=== PATIENT | male | born 1955 | race Caucasian/White ===

== ENCOUNTER → 2018-06-18 | Outpatient (REF) | payer OTHER ==
[2018-06-18 17:03] LABS: BASO # 0.1 10^3/uL (0.0-0.2); BASO % 1.1 % (0.0-1.0); EOS # 0.1 10^3/uL (0.0-0.50); EOS % 1.1 % (0.0-3.0); HEMATOCRIT 41.8 % (42.0-52.0); HEMOGLOBIN 13.7 g/dl (13.5-17.5); LYMPH # 1.8 10^3/uL (1.5-4.5); LYMPH % 24.2 % (24.0-44.0); MEAN CORPUSCULAR HGB CONC 32.8 g/dl (32.0-36.5); MEAN CORPUSCULAR VOLUME 88.6 fl (80.0-96.0); MONO # 0.8 10^3/uL (0.0-0.8); MONO % 10.8 % (0.0-5.0); NEUTROPHILS # 4.5 10^3/uL (1.8-7.7); NEUTROPHILS % 62.4 % (36.0-66.0); PLATELET COUNT, AUTOMATED 181 10^3/uL (150-450); RED BLOOD COUNT 4.72 10^6/uL (4.30-6.10); WHITE BLOOD COUNT 7.2 10^3/uL (4.0-10.0)
[2018-06-18 17:07] LABS: ALBUMIN 2.9 GM/DL (3.2-5.2); BILIRUBIN,TOTAL 0.3 MG/DL (0.2-1.0); CALCIUM LEVEL 8.7 MG/DL (8.8-10.2); CHOLESTEROL RISK RATIO 6.139 (<5); CREATININE FOR GFR 1.58 MG/DL (0.70-1.30); GLOMERULAR FILTRATION RATE 47.4 (>49); POTASSIUM SERUM 4.3 MEQ/L (3.5-5.1); THYROID STIMULATING HORMONE 3.54 uIU/ML (0.358-3.740); TOTAL PROTEIN 6.4 GM/DL (6.4-8.2)
[2018-06-18 17:18] LABS: HEMOGLOBIN A1c 12.7 %
[2018-06-18 17:31] LABS: CREATININE, URINE 58.1 MG/DL; MAU/CREAT RATIO 984.5 MCG/MG (0.0-30.0)
== END ==
LOC: M SFHCCAPE 07:24
PROVIDERS: ATTEND Physician Assistant
DX: E11.69 Type 2 diabetes mellitus with other specified complication (principal); I10 Essential (primary) hypertension

== ENCOUNTER → 2018-07-19 | Outpatient (CLI) | payer OTHER ==
--- NOTE | 2018-07-19 14:25 | REP ---
COLOR FLOW DOPPLER EXAMINATION OF THE ARTERIES OF THE NECK: RIGHT CAROTID: There is extensive plaquing of right internal carotid artery and somewhat in the bulb. The peak systolic velocities are as follows: Right common carotid 87.9 cm/s External carotid artery 77.6 cm/s Internal carotid artery 166 cm/s Diastolic internal carotid artery velocity 55.5 cm/s Internal carotid artery/common carotid artery ratio 1.89 LEFT CAROTID ARTERY: There is extensive plaquing of left internal carotid artery with complete occlusion by calcified plaque. There is some plaquing of the common carotid artery. The peak systolic velocities of the left carotid artery system is as follows: Common carotid artery 61.9 cm/s External carotid artery 104.6 cm/s Internal carotid artery completely occluded The flow in the vertebral arteries is antegrade or normal. IMPRESSION: Complete occlusion of the left internal carotid artery, as described. Extensive plaquing of right and left arteries. The degree of stenosis of the right internal carotid artery is less than 69%. This falls between 50 and 69%. Electronically Signed by Enoch Nguyen MD 07/19/2018 03:35 P
== END ==
LOC: M RAD 13:09 → EDSEX 13:30
PROVIDERS: ATTEND Physician Assistant
DX: I65.23 Occlusion and stenosis of bilateral carotid arteries (principal)

== ENCOUNTER → 2018-08-22 | Outpatient (REF) | payer OTHER ==
[2018-08-22 18:04] LABS: FREE T4 1.94 NG/DL (0.76-1.46); THYROID STIMULATING HORMONE 0.04 uIU/ML (0.358-3.740)
== END ==
LOC: M LABDRAW1 17:01
PROVIDERS: ATTEND Internal Medicine Endocrinology, Diabetes & Metabolism
DX: E04.2 Nontoxic multinodular goiter (principal)

== ENCOUNTER → 2018-11-06 | Outpatient (REF) | payer OTHER ==
[2018-11-06 16:04] LABS: BASO # 0.1 10^3/uL (0.0-0.2); BASO % 0.7 % (0.0-1.0); EOS # 0.1 10^3/uL (0.0-0.50); EOS % 1.1 % (0.0-3.0); HEMOGLOBIN 12.6 g/dl (12.0-15.5); LYMPH % 26.3 % (24.0-44.0); MEAN CORPUSCULAR HEMOGLOBIN 29.2 pg (27.0-33.0); MEAN CORPUSCULAR HGB CONC 32.3 g/dl (32.0-36.5); MEAN CORPUSCULAR VOLUME 90.3 fl (80.0-96.0); MONO # 0.7 10^3/uL (0.0-0.8); MONO % 9.5 % (0.0-5.0); NEUTROPHILS # 4.6 10^3/uL (1.8-7.7); NEUTROPHILS % 62.3 % (36.0-66.0); PLATELET COUNT, AUTOMATED 230 10^3/uL (150-450); RED BLOOD COUNT 4.32 10^6/uL (4.00-5.40); WHITE BLOOD COUNT 7.5 10^3/uL (4.0-10.0)
[2018-11-06 16:19] LABS: FREE T4 1.14 NG/DL (0.76-1.46); THYROID STIMULATING HORMONE 0.486 uIU/ML (0.358-3.740)
== END ==
LOC: M LABDRAW1 13:54
PROVIDERS: ATTEND Nurse Practitioner Family
DX: E05.00 Thyrotoxicosis with diffuse goiter without thyrotoxic crisis or storm (principal)

== ENCOUNTER → 2019-01-06 | Outpatient (REF) | payer OTHER ==
[2019-01-06 13:50] LABS: FREE T4 0.84 NG/DL (0.76-1.46); THYROID STIMULATING HORMONE 17.2 uIU/ML (0.358-3.740)
== END ==
LOC: M LABDRAW1 10:15
PROVIDERS: ATTEND Nurse Practitioner Family
DX: E05.00 Thyrotoxicosis with diffuse goiter without thyrotoxic crisis or storm (principal)

== ENCOUNTER → 2019-02-24 | Outpatient (CLI) | payer OTHER ==
[2019-02-24 13:26] LABS: BASO # 0.1 10^3/uL (0.0-0.2); BASO % 0.7 % (0.0-1.0); EOS # 0.1 10^3/uL (0.0-0.5); EOS % 0.7 % (0.0-3.0); HEMATOCRIT 40.9 % (36.0-47.0); HEMOGLOBIN 13.2 g/dl (12.0-15.5); LYMPH # 1.9 10^3/uL (1.5-5.0); LYMPH % 25.1 % (24.0-44.0); MEAN CORPUSCULAR HEMOGLOBIN 29.8 pg (27.0-33.0); MEAN CORPUSCULAR HGB CONC 32.3 g/dl (32.0-36.5); MEAN CORPUSCULAR VOLUME 92.3 fl (80.0-96.0); MONO # 0.7 10^3/uL (0.0-0.8); MONO % 8.9 % (0.0-5.0); NEUTROPHILS # 4.9 10^3/uL (1.5-8.5); NEUTROPHILS % 64.3 % (36.0-66.0); PLATELET COUNT, AUTOMATED 220 10^3/uL (150-450); RED BLOOD COUNT 4.43 10^6/uL (4.00-5.40); WHITE BLOOD COUNT 7.6 10^3/uL (4.0-10.0)
[2019-02-24 13:57] LABS: CALCIUM LEVEL 9.1 MG/DL (8.8-10.2); CREATININE FOR GFR 1.74 MG/DL (0.55-1.30); FREE THYROXINE INDEX 3.6 % (1.3-4.8); GLOMERULAR FILTRATION RATE 31.4 (>45); POTASSIUM SERUM 4.4 MEQ/L (3.5-5.1); THYROID STIMULATING HORMONE 5.28 uIU/ML (0.358-3.740); THYROXINE (T4) 8.6 UG/DL (4.5-12.0)
== END ==
LOC: M LAB 12:10
PROVIDERS: ATTEND Internal Medicine Cardiovascular Disease
DX: I48.1 Persistent atrial fibrillation (principal)

== ENCOUNTER → 2019-03-10 | Outpatient (REF) | payer OTHER ==
[2019-03-10 16:28] LABS: FREE T4 0.93 NG/DL (0.76-1.46); THYROID STIMULATING HORMONE 5.55 uIU/ML (0.358-3.740)
== END ==
LOC: M LABDRAW1 15:36
PROVIDERS: ATTEND Nurse Practitioner Family
DX: E05.00 Thyrotoxicosis with diffuse goiter without thyrotoxic crisis or storm (principal)

== ENCOUNTER 2019-04-29 11:34 | Emergency (ER) | payer OTHER ==
[~2019-04-29] VITALS: Ht 160 cm; Wt 100.0 kg
[2019-04-29] MEDS ORDERED: QUIN1TAB4 PO (11:55)
[2019-04-29] MEDS ORDERED: VITA1CAP25 PO (11:55)
[2019-04-29] MEDS ORDERED: ASPI81TA85 PO (11:55)
[2019-04-29] MEDS ORDERED: HYDR12.55 PO (11:55)
[2019-04-29] MEDS ORDERED: ELIQ5TAB PO (11:55)
[2019-04-29] MEDS ORDERED: TRES100I SC (11:55)
[2019-04-29] MEDS ORDERED: ATOR40TA75 PO (11:55)
[2019-04-29] MEDS ORDERED: LOPR1TAB6 PO (11:55)
[2019-04-29] MEDS ORDERED: VICT18IN SC (11:55)
[2019-04-29 13:00] LABS: BASO # 0.1 10^3/uL (0.0-0.2); BASO % 0.7 % (0.0-1.0); EOS # 0.1 10^3/uL (0.0-0.5); EOS % 0.7 % (0.0-3.0); HEMATOCRIT 40.2 % (36.0-47.0); HEMOGLOBIN 13.1 g/dl (12.0-15.5); LYMPH % 24.4 % (24.0-44.0); MEAN CORPUSCULAR HGB CONC 32.6 g/dl (32.0-36.5); MEAN CORPUSCULAR VOLUME 88.9 fl (80.0-96.0); MONO # 0.8 10^3/uL (0.0-0.8); MONO % 9.9 % (0.0-5.0); NEUTROPHILS # 5.2 10^3/uL (1.5-8.5); NEUTROPHILS % 64.1 % (36.0-66.0); PLATELET COUNT, AUTOMATED 220 10^3/uL (150-450); RED BLOOD COUNT 4.52 10^6/uL (4.00-5.40); WHITE BLOOD COUNT 8.2 10^3/uL (4.0-10.0)
[2019-04-29] MEDS ORDERED: NS 500 ML IV ONE ×2 (13:15→16:00)
[2019-04-29 13:26] LABS: ALBUMIN 3.1 GM/DL (3.2-5.2); ALT/SGPT 20 U/L (12-78); BILIRUBIN,TOTAL 0.5 MG/DL (0.2-1.0); BLOOD UREA NITROGEN 26 MG/DL (7-18); CALCIUM LEVEL 8.9 MG/DL (8.8-10.2); CARBON DIOXIDE LEVEL 28 MEQ/L (21-32); CHLORIDE LEVEL 106 MEQ/L (98-107); GLOMERULAR FILTRATION RATE 37.2 (>45); GLUCOSE, FASTING 115 MG/DL (70-100); POTASSIUM SERUM 4.1 MEQ/L (3.5-5.1); SODIUM LEVEL 140 MEQ/L (136-145); TOTAL PROTEIN 6.5 GM/DL (6.4-8.2)
--- NOTE | 2019-04-29 13:43 | REP ---
CT brain: 04/29/2019. Indication: Dizziness. Weakness. Comparison: None. Technique: Unenhanced axial CT images of the brain were obtained from skull base to vertex. Findings: There is no acute intracranial hemorrhage, acute cortical infarction, mass effect, hydrocephalus or significant fluid within the visualized paranasal sinuses/mastoid air cells. Impression: No acute intracranial process. Electronically Signed by Ron Marroquin DO 04/29/2019 01:34 P
--- NOTE | 2019-04-29 13:49 | REP ---
Clinical: Weakness and dizziness . Comparison: None . Technique: PA and lateral. Findings: Cardiomegaly is suggested. The lung henderson are clear and without acute consolidation, effusion, or pneumothorax. The skeletal structures are intact and normal. Impression: 1. Cardiomegaly. No acute cardiopulmonary process. Electronically Signed by Brandyn Sandoval MD 04/29/2019 01:40 P
[2019-04-29 13:56] LABS: CK-MB VALUE MASS < 1.0 NG/ML (<3.6); CPK CREATINE PHOSPHOKINASE 33 U/L (26-192); FREE T4 1.05 NG/DL (0.76-1.46); MAGNESIUM LEVEL 2.2 MG/DL (1.8-2.4); MB/CK RELATIVE INDEX 3.03 (< OR =4); PHOSPHORUS LEVEL 3.7 MG/DL (2.5-4.9); TROPONIN I < 0.02 NG/ML (< 0.10)
[2019-04-29] MEDS ORDERED: METOPROLOL 5 MG/5 ML VIAL IV STA ×2 (15:58→17:21)
[2019-04-29] MEDS ORDERED: METOPROLOL TART 50 MG TAB PO ONE (16:00)
--- NOTE | 2019-04-29 17:15 | ECGEPIP ---
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
[2019-04-29 18:51] VITALS: BP 128/69
== END 2019-04-29 18:52 | disposition home or self-care (01) ==
LOC: M ED 11:34
DX: I48.91 Unspecified atrial fibrillation (principal); I95.1 Orthostatic hypotension; E11.9 Type 2 diabetes mellitus without complications; I12.9 Hypertensive chronic kidney disease with stage 1 through stage 4 chronic kidney disease, or unspecified chronic kidney disease; N18.9 Chronic kidney disease, unspecified; Z79.899 Other long term (current) drug therapy; Z79.82 Long term (current) use of aspirin; Z79.4 Long term (current) use of insulin; Z79.01 Long term (current) use of anticoagulants; Z88.8 Allergy status to other drugs, medicaments and biological substances; Z91.018 Allergy to other foods

== ENCOUNTER 2019-05-06 05:40 | Day surgery (SDC) | payer OTHER ==
[~2019-05-06] VITALS: Ht 160 cm; Wt 99.8 kg
[~2019-05-06 05:40] MED LIST: ASPI81TA85 PO; ATOR40TA75 PO; ELIQ5TAB PO; HYDR12.55 PO; LOPR1TAB6 PO; QUIN1TAB4 PO; TRES100I SC; VICT18IN SC; VITA1CAP25 PO
[2019-05-06] MEDS ORDERED: LR 1,000 ML IV ONE (06:00)
[2019-05-06] MEDS ORDERED: LIDOCAINE 2% INJ 100 MG/5 ML SDV (FOR ANES.) As Ordered ONE (07:14)
[2019-05-06] MEDS ORDERED: PROPOFOL 200 MG/20 ML VIAL As Ordered ONE (07:14)
--- NOTE | 2019-05-06 07:52 | RO ---
DATE OF PROCEDURE: 05/06/2019 INDICATION: Atrial flutter. Anesthesiology provided by Nupur Pizarro CRNA. BRIEF HISTORY: Mrs. Harrison is a 63-year-old female who has had persistent atypical atrial flutter now for approximately 2 months it has been challenging to accomplish rate control and she already had two ablations in the past. Ultimately we decided to proceed with DC cardioversion in an attempt to restore sinus rhythm. I talked to the patient about the risks of the procedure including the risk of stroke and possibility need of pacemaker early relapse. She did sign appropriate consent on outpatient basis. PROCEDURE NOTE: Procedure was performed recovery room the patient presented in fasting condition. She was examined and 12-lead ECG confirmed persistent atrial flutter with ventricular rate 125 beats per minute. After appropriate time-out was taken anesthesiology provided sedation. When appropriate level sedation was accomplished, she was cardioverted with 200 joules of energy in synchronized fashion. Single shock led to mandaeism of sinus rhythm. There were no immediate complications. 12-lead ECG is pending at the time of my dictation. The patient will be discharged home later today provided no complications occur. She will resume her preadmission medications. I will arrange for outpatient followup next week.
[2019-05-06] MEDS ORDERED: fentaNYL 100 MCG/2 ML INJECTION (J3010) IV PRN (08:00)
[2019-05-06] MEDS ORDERED: LR 1,000 ML IV SCH (08:00)
[2019-05-06] MEDS ORDERED: ONDANSETRON 4MG/2ML VIAL (J2405) IV PRN (08:00)
[2019-05-06] MEDS ORDERED: METOCLOPRAMIDE INJ 10MG/2ML VIAL (J2765) IV PRN (08:00)
[2019-05-06 08:04] VITALS: BP 128/61
--- NOTE | 2019-05-06 16:48 | ECGEPIP ---
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
--- NOTE | 2019-05-06 16:48 | ECGEPIP ---
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
== END 2019-05-06 08:47 | disposition home or self-care (01) ==
LOC: M SDC 05:40
PROVIDERS: ATTEND Internal Medicine Cardiovascular Disease
DX: I48.92 Unspecified atrial flutter (principal); I10 Essential (primary) hypertension; E11.9 Type 2 diabetes mellitus without complications; Z79.82 Long term (current) use of aspirin; Z79.899 Other long term (current) drug therapy

== ENCOUNTER → 2019-05-22 | Outpatient (CLI) | payer OTHER ==
[2019-05-22 19:57] LABS: THYROID STIMULATING HORMONE 4.66 uIU/ML (0.358-3.740)
== END ==
LOC: M WUC 11:47
PROVIDERS: ATTEND Nurse Practitioner Family
DX: E05.00 Thyrotoxicosis with diffuse goiter without thyrotoxic crisis or storm (principal)

== ENCOUNTER → 2019-06-04 | Outpatient (CLI) | payer MEDICARE, OTHER ==
[2019-06-04 16:50] LABS: HEMOGLOBIN 13.8 g/dl (12.0-15.5); MEAN CORPUSCULAR HEMOGLOBIN 28.9 pg (27.0-33.0); MEAN CORPUSCULAR HGB CONC 32.1 g/dl (32.0-36.5); PLATELET COUNT, AUTOMATED 245 10^3/uL (150-450); RED BLOOD COUNT 4.78 10^6/uL (4.00-5.40); WHITE BLOOD COUNT 7.9 10^3/uL (4.0-10.0)
[2019-06-04 17:07] LABS: CALCIUM LEVEL 9.2 MG/DL (8.8-10.2); CREATININE FOR GFR 1.45 MG/DL (0.55-1.30); GLOMERULAR FILTRATION RATE 38.7 (>45); POTASSIUM SERUM 4.4 MEQ/L (3.5-5.1); THYROID STIMULATING HORMONE 4.96 uIU/ML (0.358-3.740)
== END ==
LOC: M WUC 14:00
PROVIDERS: ATTEND Nurse Practitioner Family
DX: I48.0 Paroxysmal atrial fibrillation (principal)

== ENCOUNTER → 2019-06-24 | Outpatient (REF) | payer MEDICARE, OTHER ==
[2019-06-24 17:59] LABS: ALBUMIN 3.3 GM/DL (3.2-5.2); BILIRUBIN,TOTAL 0.3 MG/DL (0.2-1.0); CALCIUM LEVEL 9.3 MG/DL (8.8-10.2); CHOLESTEROL RISK RATIO 3.822 (<5); CREATININE FOR GFR 1.4 MG/DL (0.55-1.30); GLOMERULAR FILTRATION RATE 40.2 (>45); HEMOGLOBIN A1c 6.8 %; POTASSIUM SERUM 4.3 MEQ/L (3.5-5.1); TOTAL PROTEIN 6.6 GM/DL (6.4-8.2)
[2019-06-24 18:14] LABS: BASO # 0.1 10^3/uL (0.0-0.2); BASO % 0.8 % (0.0-1.0); EOS # 0.1 10^3/uL (0.0-0.5); EOS % 1.2 % (0.0-3.0); HEMATOCRIT 42.8 % (36.0-47.0); HEMOGLOBIN 13.8 g/dl (12.0-15.5); LYMPH # 1.8 10^3/uL (1.5-5.0); LYMPH % 23.6 % (24.0-44.0); MEAN CORPUSCULAR HEMOGLOBIN 29.1 pg (27.0-33.0); MEAN CORPUSCULAR HGB CONC 32.2 g/dl (32.0-36.5); MEAN CORPUSCULAR VOLUME 90.3 fl (80.0-96.0); MONO # 0.7 10^3/uL (0.0-0.8); MONO % 9.5 % (0.0-5.0); NEUTROPHILS # 4.9 10^3/uL (1.5-8.5); NEUTROPHILS % 64.5 % (36.0-66.0); PLATELET COUNT, AUTOMATED 235 10^3/uL (150-450); RED BLOOD COUNT 4.74 10^6/uL (4.00-5.40); WHITE BLOOD COUNT 7.6 10^3/uL (4.0-10.0)
[2019-06-24 18:19] LABS: CREATININE, URINE 68.6 MG/DL; MAU/CREAT RATIO 45.1 MCG/MG (0.0-30.0)
== END ==
LOC: M SFHCCAPE 10:26
PROVIDERS: ATTEND Physician Assistant
DX: E11.69 Type 2 diabetes mellitus with other specified complication (principal)

== ENCOUNTER → 2019-07-08 | Outpatient (CLI) | payer MEDICARE, OTHER ==
--- NOTE | 2019-07-11 14:40 | REPMRS ---
Patient History The patient states she had a clinical breast exam in May 2019. No known family history of cancer. Digital Mammo Diagnostic Bilateral: July 08, 2019 - Exam #: [id number] Bilateral CC and MLO view(s) were taken. Technologist: Nancy Martinez, Technologist Prior study comparison: December 28, 2016, right breast diagnostic unilateral mammo, performed at [facility]. December 18, 2016, bilateral digital woman screen mammo, performed at [facility]. FINDINGS: There are scattered fibroglandular densities. There are a grouping of rounded punctate calcifications in the upper outer quadrant anterior third right breast unchanged from the 2017 prior study. There is a coarse calcification centrally in the well-circumscribed 8 mm nodule in the left subareolar breast consistent with a small fibroadenoma. This is felt to be unchanged. There has been no change in the appearance of the mammogram from the prior studies. There is a mild amount of scattered fibroglandular density which is fairly symmetric. There is no interval development of dominant mass, architectural distortion, or grouped microcalcification suggestive of malignancy. 3-D tomosynthesis shows no additional findings. Assessment: BI-RADS/ACR category 2 mammogram. Benign Findings. Recommendation Routine screening mammogram of both breasts in 1 year (for women over age 40). This patient's Lifetime Breast Cancer Risk is estimated at 5.5 %. This mammogram was interpreted with the aid of an FDA-approved computer-aided dectection system. Electronically Signed By: Leighton Christensen MD 07/11/19 [id number]
== END ==
LOC: M RAD 09:23
PROVIDERS: ATTEND Physician Assistant
DX: Z12.31 Encounter for screening mammogram for malignant neoplasm of breast (principal); N63.42 Unspecified lump in left breast, subareolar; Z87.898 Personal history of other specified conditions
CPT/HCPCS: 77066; G0279

== ENCOUNTER → 2019-07-23 | Outpatient (CLI) | payer MEDICARE, OTHER ==
[2019-07-23 12:43] LABS: ALBUMIN 3.1 GM/DL (3.2-5.2); BILIRUBIN,TOTAL 0.3 MG/DL (0.2-1.0); CALCIUM LEVEL 8.7 MG/DL (8.8-10.2); CHOLESTEROL RISK RATIO 3.975 (<5); CREATININE FOR GFR 1.49 MG/DL (0.55-1.30); FREE T4 0.96 NG/DL (0.76-1.46); GLOMERULAR FILTRATION RATE 37.4 (>45); POTASSIUM SERUM 4.2 MEQ/L (3.5-5.1); THYROID STIMULATING HORMONE 6.49 uIU/ML (0.358-3.740); TOTAL PROTEIN 6.4 GM/DL (6.4-8.2)
[2019-07-23 12:55] LABS: MALB URINE SIEMENS 34.3 MG/L; MAU/CREAT RATIO 30.6 MCG/MG (0.0-30.0)
== END ==
LOC: M WUC 09:45
PROVIDERS: ATTEND Internal Medicine Endocrinology, Diabetes & Metabolism
DX: E05.00 Thyrotoxicosis with diffuse goiter without thyrotoxic crisis or storm (principal)

== ENCOUNTER → 2019-10-23 | Outpatient (CLI) | payer MEDICARE, OTHER ==
[2019-10-23 20:12] LABS: FREE T4 1.1 NG/DL (0.76-1.46); THYROID STIMULATING HORMONE 2.1 uIU/ML (0.358-3.740)
== END ==
LOC: M WUC 15:27
PROVIDERS: ATTEND Nurse Practitioner Family
DX: E05.00 Thyrotoxicosis with diffuse goiter without thyrotoxic crisis or storm (principal); E78.00 Pure hypercholesterolemia, unspecified

== ENCOUNTER → 2019-10-30 | Outpatient (CLI) | payer MEDICARE, OTHER ==
--- NOTE | 2019-10-30 16:00 | REP ---
REASON FOR EXAM: Followup. The only prior for comparison is 11/20/2017 from an outside institution. Additionally, the lack of intravenous contrast decreases the sensitivity of the exam. There are calcified mediastinal and hilar lymph nodes, status quo, slightly increased. There is no mediastinal or hilar adenopathy. There are no pleural or pericardial effusions. The imaged upper abdomen and imaged osseous structures are unchanged. Calcified granulomatous changes are again seen involving the spleen and liver. Evaluation of the lung henderson again shows an incidental calcified granuloma in the left lower lobe. There is a new 7 mm sized nodule in the posterior segment of the right upper lobe. There is an unchanged irregular nodular density in the right upper lobe apical segment measuring 1 cm. Stable asymmetric densities are seen in the lung bases, particularly the inferior lingula and inferior right middle lobe status quo. IMPRESSION: 1. There is a new 7 mm sized nodule in the right upper lobe as described above. According to the revised Fleischner Society criteria, this represents a category 4 lesion for which 3-month followup examination is recommended. 2. There are other lung field findings as described above, which are chronic and stable. Electronically Signed by Musa Cheng DO 10/30/2019 04:46 P
== END ==
LOC: M RAD 08:00
PROVIDERS: ATTEND Internal Medicine Pulmonary Disease
DX: R91.8 Other nonspecific abnormal finding of lung field (principal); J84.10 Pulmonary fibrosis, unspecified

== ENCOUNTER → 2019-11-12 | Outpatient (CLI) | payer MEDICARE, OTHER ==
[~2019-11-12] MED LIST changes: -ASPI81TA85 PO; +ASPI81TA86 PO
[2019-11-12 14:00] LABS: BASO # 0.1 10^3/uL (0.0-0.2); BASO % 0.8 % (0.0-1.0); EOS # 0.1 10^3/uL (0.0-0.5); EOS % 0.9 % (0.0-3.0); HEMATOCRIT 41.9 % (36.0-47.0); HEMOGLOBIN 13.5 g/dl (12.0-15.5); LYMPH % 29.6 % (24.0-44.0); MEAN CORPUSCULAR HEMOGLOBIN 28.3 pg (27.0-33.0); MEAN CORPUSCULAR HGB CONC 32.2 g/dl (32.0-36.5); MEAN CORPUSCULAR VOLUME 87.8 fl (80.0-96.0); MONO # 0.7 10^3/uL (0.0-0.8); MONO % 10.8 % (0.0-5.0); NEUTROPHILS # 3.9 10^3/uL (1.5-8.5); NEUTROPHILS % 57.7 % (36.0-66.0); PLATELET COUNT, AUTOMATED 226 10^3/uL (150-450); RED BLOOD COUNT 4.77 10^6/uL (4.00-5.40); WHITE BLOOD COUNT 6.7 10^3/uL (4.0-10.0)
[2019-11-12 14:34] LABS: ALBUMIN 3.1 GM/DL (3.2-5.2); BILIRUBIN,TOTAL 0.4 MG/DL (0.2-1.0); CALCIUM LEVEL 8.5 MG/DL (8.8-10.2); CHOLESTEROL RISK RATIO 3.4 (<5); CREATININE FOR GFR 1.25 MG/DL (0.55-1.30); FREE T4 0.91 NG/DL (0.76-1.46); GLOMERULAR FILTRATION RATE 45.8 (>45); POTASSIUM SERUM 4.4 MEQ/L (3.5-5.1); THYROID STIMULATING HORMONE 3.41 uIU/ML (0.358-3.740); TOTAL PROTEIN 6.4 GM/DL (6.4-8.2)
[2019-11-12 14:44] LABS: HEMOGLOBIN A1c 7.1 %
== END ==
LOC: M WUC 09:48
PROVIDERS: ATTEND Physician Assistant
DX: E11.69 Type 2 diabetes mellitus with other specified complication (principal)

== ENCOUNTER → 2019-11-30 | Outpatient (CLI) | payer MEDICARE, OTHER ==
[~2019-11-30] MED LIST changes: +ASPI81TA85 PO; -ASPI81TA86 PO
--- NOTE | 2019-12-11 16:41 | SLEEPCENT ---
DATE OF PROCEDURE: 11/30/2019 Nocturnal polysomnography was performed for evaluation of sleep physiology in this patient with a history of excessive somnolence and nonrestorative sleep who has comorbidities of cardiac dysrhythmia, hypertension and diabetes. 7 hours and 46 minutes of data were reviewed. There were 303 minutes of sleep identified. Sleep latency was prolonged at 23 minutes. Rapid eye movement (REM) latency was prolonged at 165 minutes. Sleep architecture showed fragmentation and poor progression. There was only one REM cycle noted. Overall sleep efficiency was 65.7%. The electrocardiogram showed a sinus rhythm with an average heart rate of 60 beats per minute. EEG showed normal waveforms for awake and sleep. There were 172 respiratory events identified of 10 seconds in duration or greater for an apnea-hypopnea index of 34.1. The events were primarily obstructive, not exclusive to sleep stage nor body posture. Arousals from respiratory events occurred 5.7 times per hour. There was also some activity in the limb leads. Limb movement arousal index was 3.2. IMPRESSION: Obstructive sleep apnea syndrome (G47.33). Apnea-hypopnea index 34.1. RECOMMENDATIONS: The patient should be encouraged to return to the sleep disorder center for pressure therapy. In the interim, alcohol and sedative avoidance should be practiced and caution exercised during the operation of motor vehicles.
== END ==
LOC: M SLEEP 20:00
PROVIDERS: ATTEND Physician Assistant
DX: G47.33 Obstructive sleep apnea (adult) (pediatric) (principal)

== ENCOUNTER → 2020-01-22 | Outpatient (CLI) | payer MEDICARE, OTHER ==
[~2020-01-22] MED LIST changes: -ASPI81TA85 PO; +ASPI81TA86 PO
== END ==
LOC: M LABSMTC 10:39
PROVIDERS: ATTEND Internal Medicine Cardiovascular Disease
DX: Z03.818 Encounter for observation for suspected exposure to other biological agents ruled out (principal); Z11.59 Encounter for screening for other viral diseases

== ENCOUNTER → 2020-01-22 | Outpatient (CLI) | payer MEDICARE, OTHER ==
[2020-01-22 19:19] LABS: FREE T4 0.9 NG/DL (0.76-1.46); THYROID STIMULATING HORMONE 3.08 uIU/ML (0.358-3.740)
== END ==
LOC: M WUC 10:59
PROVIDERS: ATTEND Nurse Practitioner Family
DX: E05.00 Thyrotoxicosis with diffuse goiter without thyrotoxic crisis or storm (principal); Z11.59 Encounter for screening for other viral diseases
CPT/HCPCS: 36415; 84439; 84443; C9803; U0003

== ENCOUNTER → 2020-02-05 | Outpatient (CLI) | payer MEDICARE, OTHER ==
--- NOTE | 2020-02-27 13:29 | REP ---
NON-CONTRAST CHEST CT: 02/05/20 CLINICAL: Follow-up abnormal lung findings. COMPARISON: Multiple examinations dating between 10/30/19 and 11/20/17. FINDINGS: The somewhat trilobed non-calcified nodular lesion along the posterior aspect of the right upper lobe (images 21-23) is again identified and is essentially unchanged as compared through 11/20/17 and 02/25/19 examinations. The lung henderson are otherwise well aerated with minimal chronic fibroatelectatic changes at the bilateral bases as well as the right middle lobe and lingula. A 7mm non-calcified nodule in the subpleural left lower lobe (image 68) is also identified and is stable as compared to 10/30/19 and 11/20/17 examinations. No further consolidation, significant nodule or mass lesion is appreciated. A few calcified granulomata noted suggesting prior granulomatous disease. Evaluation of the mediastinum demonstrates atherosclerotic changes to the thoracic aorta and coronary arteries without thoracic aortic aneurysm or cardiomegaly. No pericardial effusion. A small hiatal hernia identified. Limited evaluation of the upper abdomen demonstrates normal bilateral adrenal glands along with hepatic and splenic calcifications again consistent with prior granulomatous disease. IMPRESSION: 1. A few nodular densities on current examination remained stable through 11/20/17. No acute significant mediastinal or pleural parenchymal process is appreciated. 2. Evidence for prior granulomatous disease. MTDD
== END ==
LOC: M RAD 10:24
PROVIDERS: ATTEND Internal Medicine Pulmonary Disease
DX: R91.8 Other nonspecific abnormal finding of lung field (principal); I70.0 Atherosclerosis of aorta; I25.10 Atherosclerotic heart disease of native coronary artery without angina pectoris

== ENCOUNTER → 2020-02-18 | Outpatient (CLI) | payer MEDICARE, OTHER ==
[2020-02-18 12:41] LABS: BASO # 0.1 10^3/uL (0.0-0.2); BASO % 1.1 % (0.0-1.0); EOS # 0.1 10^3/uL (0.0-0.5); EOS % 1.3 % (0.0-3.0); HEMATOCRIT 40.7 % (36.0-47.0); HEMOGLOBIN 13.1 g/dl (12.0-15.5); LYMPH # 1.8 10^3/uL (1.5-5.0); LYMPH % 28.3 % (24.0-44.0); MEAN CORPUSCULAR HEMOGLOBIN 28.7 pg (27.0-33.0); MEAN CORPUSCULAR HGB CONC 32.2 g/dl (32.0-36.5); MEAN CORPUSCULAR VOLUME 89.1 fl (80.0-96.0); MONO # 0.7 10^3/uL (0.0-0.8); MONO % 10.4 % (0.0-5.0); NEUTROPHILS # 3.7 10^3/uL (1.5-8.5); NEUTROPHILS % 58.7 % (36.0-66.0); PLATELET COUNT, AUTOMATED 204 10^3/uL (150-450); RED BLOOD COUNT 4.57 10^6/uL (4.00-5.40); WHITE BLOOD COUNT 6.3 10^3/uL (4.0-10.0)
[2020-02-18 13:13] LABS: BILIRUBIN,TOTAL 0.3 MG/DL (0.2-1.0); CALCIUM LEVEL 8.7 MG/DL (8.8-10.2); CHOLESTEROL RISK RATIO 3.755 (<5); CREATININE FOR GFR 1.4 MG/DL (0.55-1.30); FREE T4 0.85 NG/DL (0.76-1.46); GLOMERULAR FILTRATION RATE 40.2 (>45); POTASSIUM SERUM 4.8 MEQ/L (3.5-5.1); THYROID STIMULATING HORMONE 2.8 uIU/ML (0.358-3.740); TOTAL PROTEIN 6.4 GM/DL (6.4-8.2)
[2020-02-18 13:25] LABS: HEMOGLOBIN A1c 7.1 %
== END ==
LOC: M WUC 10:00
PROVIDERS: ATTEND Physician Assistant
DX: E05.00 Thyrotoxicosis with diffuse goiter without thyrotoxic crisis or storm (principal); E11.69 Type 2 diabetes mellitus with other specified complication; I10 Essential (primary) hypertension

== ENCOUNTER → 2020-04-15 | Outpatient (CLI) | payer MEDICARE, OTHER ==
[2020-04-15 14:31] LABS: CALCIUM LEVEL 9.1 MG/DL (8.8-10.2); CREATININE FOR GFR 1.28 MG/DL (0.55-1.30); GLOMERULAR FILTRATION RATE 44.6 (>45); POTASSIUM SERUM 4.1 MEQ/L (3.5-5.1)
== END ==
LOC: M WUC 11:38
PROVIDERS: ATTEND Internal Medicine Endocrinology, Diabetes & Metabolism
DX: E11.22 Type 2 diabetes mellitus with diabetic chronic kidney disease (principal); N18.9 Chronic kidney disease, unspecified

== ENCOUNTER → 2020-07-22 | Outpatient (CLI) | payer MEDICARE, OTHER ==
[2020-07-22 12:26] LABS: FREE T4 1.02 NG/DL (0.76-1.46); THYROID STIMULATING HORMONE 1.5 uIU/ML (0.358-3.740)
== END ==
LOC: M WUC 09:45
PROVIDERS: ATTEND Internal Medicine Endocrinology, Diabetes & Metabolism
DX: E05.00 Thyrotoxicosis with diffuse goiter without thyrotoxic crisis or storm (principal)

== ENCOUNTER → 2021-01-24 | Outpatient (REF) | payer MEDICARE ==
[2021-01-24 12:58] LABS: ALBUMIN 2.9 GM/DL (3.2-5.2); BILIRUBIN,TOTAL 0.4 MG/DL (0.2-1.0); CHOLESTEROL RISK RATIO 4.133 (<5); CREATININE FOR GFR 1.47 MG/DL (0.55-1.30); FREE T4 0.81 NG/DL (0.76-1.46); GLOMERULAR FILTRATION RATE 37.9 (>45); POTASSIUM SERUM 4.4 MEQ/L (3.5-5.1); THYROID STIMULATING HORMONE 3.86 uIU/ML (0.358-3.740); TOTAL PROTEIN 6.7 GM/DL (6.4-8.2)
== END ==
LOC: M WUC 11:12
PROVIDERS: ATTEND Nurse Practitioner Family
DX: E78.00 Pure hypercholesterolemia, unspecified (principal); E05.00 Thyrotoxicosis with diffuse goiter without thyrotoxic crisis or storm

== ENCOUNTER → 2021-03-03 | Outpatient (CLI) | payer MEDICARE ==
[2021-03-03 14:21] LABS: ALBUMIN 2.9 GM/DL (3.2-5.2); CALCIUM LEVEL 9.2 MG/DL (8.8-10.2); CREATININE FOR GFR 1.3 MG/DL (0.55-1.30); GLOMERULAR FILTRATION RATE 43.6 (>45); PHOSPHORUS LEVEL 3.6 MG/DL (2.5-4.9); POTASSIUM SERUM 4.2 MEQ/L (3.5-5.1)
== END ==
LOC: M WUC 10:51
PROVIDERS: ATTEND Nurse Practitioner Family
DX: N18.32 Chronic kidney disease, stage 3b (principal)

== ENCOUNTER → 2021-07-22 | Outpatient (REF) | payer MEDICARE | LOC: M LAB REF 12:52 | PROVIDERS: ATTEND Nurse Practitioner Family | DX: E83.42 Hypomagnesemia (principal) ==

== ENCOUNTER → 2021-08-02 | Outpatient (CLI) | payer MEDICARE ==
[2021-08-02 13:09] LABS: CHOLESTEROL RISK RATIO 3.975 (<5)
== END ==
LOC: M WUC 10:46
PROVIDERS: ATTEND Nurse Practitioner Family
DX: E78.5 Hyperlipidemia, unspecified (principal)

== ENCOUNTER → 2021-08-02 | Outpatient (CLI) | payer MEDICARE ==
[2021-08-02 13:16] LABS: CALCIUM LEVEL 9.1 MG/DL (8.8-10.2); CREATININE FOR GFR 1.38 MG/DL (0.55-1.30); CREATININE, URINE 92.5 MG/DL; FREE T4 0.95 NG/DL (0.76-1.46); GLOMERULAR FILTRATION RATE 40.6 (>45); MAU/CREAT RATIO 256.2 MCG/MG (0.0-30.0); POTASSIUM SERUM 4.4 MEQ/L (3.5-5.1); THYROID STIMULATING HORMONE 4.12 uIU/ML (0.358-3.740)
== END ==
LOC: M WUC 10:44
PROVIDERS: ATTEND Nurse Practitioner Family
DX: E05.00 Thyrotoxicosis with diffuse goiter without thyrotoxic crisis or storm (principal); E11.22 Type 2 diabetes mellitus with diabetic chronic kidney disease; E78.5 Hyperlipidemia, unspecified

== ENCOUNTER → 2021-08-24 | Outpatient (CLI) | payer MEDICARE ==
[2021-08-24 16:01] LABS: BASO % 0.4 % (0.0-1.0); EOS # 0.1 10^3/uL (0.0-0.5); EOS % 0.8 % (0.0-3.0); HEMATOCRIT 45.4 % (36.0-47.0); HEMOGLOBIN 14.3 g/dl (12.0-15.5); LYMPH # 2.2 10^3/uL (1.5-5.0); LYMPH % 22.9 % (24.0-44.0); MEAN CORPUSCULAR HEMOGLOBIN 27.7 pg (27.0-33.0); MEAN CORPUSCULAR HGB CONC 31.5 g/dl (32.0-36.5); MONO # 0.9 10^3/uL (0.0-0.8); MONO % 9.7 % (2.0-8.0); NEUTROPHILS # 6.3 10^3/uL (1.5-8.5); PLATELET COUNT, AUTOMATED 238 10^3/uL (150-450); RED BLOOD COUNT 5.16 10^6/uL (4.00-5.40); WHITE BLOOD COUNT 9.5 10^3/uL (4.0-10.0)
[2021-08-24 16:35] LABS: ALBUMIN 3.5 GM/DL (3.2-5.2); BILIRUBIN,TOTAL 0.4 MG/DL (0.2-1.0); CALCIUM LEVEL 9.5 MG/DL (8.8-10.2); CHOLESTEROL RISK RATIO 3.54 (<5); CREATININE FOR GFR 1.28 MG/DL (0.55-1.30); FREE T4 1.04 NG/DL (0.76-1.46); GLOMERULAR FILTRATION RATE 44.3 (>45); POTASSIUM SERUM 4.8 MEQ/L (3.5-5.1); THYROID STIMULATING HORMONE 2.3 uIU/ML (0.358-3.740); TOTAL PROTEIN 7.4 GM/DL (6.4-8.2)
[2021-08-24 16:37] LABS: CREATININE, URINE 91.2 MG/DL; MAU/CREAT RATIO 240.1 MCG/MG (0.0-30.0)
[2021-08-24 16:54] LABS: HEMOGLOBIN A1c 8.2 %
== END ==
LOC: M WUC 14:26
PROVIDERS: ATTEND Physician Assistant
DX: I10 Essential (primary) hypertension (principal); E11.69 Type 2 diabetes mellitus with other specified complication; E05.00 Thyrotoxicosis with diffuse goiter without thyrotoxic crisis or storm

== ENCOUNTER → 2021-11-07 | Outpatient (CLI) | payer MEDICARE, OTHER ==
[2021-11-07 17:08] LABS: FREE T4 1.18 NG/DL (0.76-1.46); THYROID STIMULATING HORMONE 1.78 uIU/ML (0.358-3.740)
== END ==
LOC: M WUC 11:26
PROVIDERS: ATTEND Nurse Practitioner Family
DX: E05.00 Thyrotoxicosis with diffuse goiter without thyrotoxic crisis or storm (principal)

== ENCOUNTER → 2022-03-15 | Outpatient (CLI) | payer MEDICARE | LOC: M RAD 10:49 | PROVIDERS: ATTEND Physician Assistant | DX: R91.8 Other nonspecific abnormal finding of lung field (principal); K44.9 Diaphragmatic hernia without obstruction or gangrene ==

== ENCOUNTER → 2022-03-16 | Outpatient (CLI) | payer MEDICARE | LOC: M WHC 14:35 | PROVIDERS: ATTEND Physician Assistant | DX: Z12.31 Encounter for screening mammogram for malignant neoplasm of breast (principal); Z78.0 Asymptomatic menopausal state; M85.89 Other specified disorders of bone density and structure, multiple sites ==

== ENCOUNTER → 2022-06-01 | Outpatient (CLI) | payer MEDICARE ==
[~2022-06-01] MED LIST changes: +CLOP75TA2 PO; +ERGO500029; +LEVO100T5 PO; +LISI20TA33 PO; +METO100T5; +OZEM2INJ; +SEMA1PEN2; +TRES1INJ2 SQ
== END ==
LOC: M LABSMTC 09:27
PROVIDERS: ATTEND Anesthesiology
DX: Z01.812 Encounter for preprocedural laboratory examination (principal); Z20.822 Contact with and (suspected) exposure to COVID-19

== ENCOUNTER 2022-06-06 10:14 | Day surgery (SDC) | payer MEDICARE ==
[~2022-06-06] VITALS: Ht 160 cm; Wt 111.9 kg
[~2022-06-06 10:14] MED LIST changes: +ACETYLCHOLINE OPHTH SOLN 1% 2ML (MIOCHOL-E) As Ordered ONE; +BSS IRR 500ML/OMIDRIA 4ML IRR BAG (OR ONLY) As Ordered ONE; +CYCLOPENTOLATE 1% OPHTH SOLN 2ML BTL OD SCH; +LIDOCAINE 1% 1ML PF SYRINGE (OR EYE CASES) As Ordered ONE; +OFLOXACIN 0.3 % (OCUFLOX) OPTH SOL 5ML OD SCH; +PHENYLEPHRINE 2.5% OPHTH SOL 2ML OD SCH; +PROPARACAINE 0.5% OPHTH SOL 15ML OD ONE; +TROPICAMIDE 1% OPHTH SOLN 15ML OD SCH
[2022-06-06] MEDS ORDERED: MIDAZOLAM INJ 2MG/2ML VIAL As Ordered ONE (13:33)
[2022-06-06] MEDS ORDERED: fentaNYL 100 MCG/2 ML INJECTION As Ordered ONE (13:37)
[2022-06-06 13:46] VITALS: BP 168/88
== END 2022-06-06 14:09 | disposition home or self-care (01) ==
LOC: M SDC 10:14
PROVIDERS: ATTEND Ophthalmology
DX: H25.11 Age-related nuclear cataract, right eye (principal); I10 Essential (primary) hypertension; E11.9 Type 2 diabetes mellitus without complications; E78.5 Hyperlipidemia, unspecified; Z95.0 Presence of cardiac pacemaker; I48.91 Unspecified atrial fibrillation; K21.9 Gastro-esophageal reflux disease without esophagitis; Z79.01 Long term (current) use of anticoagulants; Z79.02 Long term (current) use of antithrombotics/antiplatelets; Z79.4 Long term (current) use of insulin; Z79.899 Other long term (current) drug therapy
CPT/HCPCS: 66984; J1097; J2250; J3010; V2632

== ENCOUNTER → 2022-08-31 | Outpatient (CLI) | payer MEDICARE ==
[~2022-08-31] MED LIST changes: -ACETYLCHOLINE OPHTH SOLN 1% 2ML (MIOCHOL-E) As Ordered ONE; -BSS IRR 500ML/OMIDRIA 4ML IRR BAG (OR ONLY) As Ordered ONE; -CYCLOPENTOLATE 1% OPHTH SOLN 2ML BTL OD SCH; -LIDOCAINE 1% 1ML PF SYRINGE (OR EYE CASES) As Ordered ONE; -OFLOXACIN 0.3 % (OCUFLOX) OPTH SOL 5ML OD SCH; -PHENYLEPHRINE 2.5% OPHTH SOL 2ML OD SCH; -PROPARACAINE 0.5% OPHTH SOL 15ML OD ONE; -TROPICAMIDE 1% OPHTH SOLN 15ML OD SCH
[2022-08-31 13:51] LABS: BASO # 0.1 10^3/uL (0.0-0.2); BASO % 0.9 % (0.0-1.0); EOS # 0.2 10^3/uL (0.0-0.5); HEMATOCRIT 40.8 % (36.0-47.0); HEMOGLOBIN 12.9 g/dl (12.0-15.5); LYMPH % 24.7 % (24.0-44.0); MEAN CORPUSCULAR HEMOGLOBIN 28.2 pg (27.0-33.0); MEAN CORPUSCULAR HGB CONC 31.6 g/dl (32.0-36.5); MEAN CORPUSCULAR VOLUME 89.1 fl (80.0-96.0); MONO # 0.8 10^3/uL (0.0-0.8); MONO % 10.1 % (2.0-8.0); NEUTROPHILS # 4.9 10^3/uL (1.5-8.5); NEUTROPHILS % 61.9 % (36.0-66.0); PLATELET COUNT, AUTOMATED 235 10^3/uL (150-450); RED BLOOD COUNT 4.58 10^6/uL (4.00-5.40); WHITE BLOOD COUNT 7.9 10^3/uL (4.0-10.0)
[2022-08-31 14:07] LABS: BILIRUBIN,TOTAL 0.3 MG/DL (0.3-1.2); CALCIUM LEVEL 9.1 MG/DL (8.3-10.6); CHOLESTEROL RISK RATIO 3.39 (<5); CREATININE FOR GFR 1.43 MG/DL (0.55-1.30); GLOMERULAR FILTRATION RATE 38.8 (>45); HDL CHOLESTEROL 45.3 MG/DL (>40); LDL CHOLESTEROL 86.1 MG/DL (<100); NON-HDL-C 108.7 MG/DL; POTASSIUM SERUM 4.6 MMOL/L (3.5-5.1); TOTAL PROTEIN 6.3 G/DL (5.7-8.2)
[2022-08-31 15:36] LABS: HEMOGLOBIN A1c 7.1 % (4.0-6.0)
== END ==
LOC: M WUC 10:30
PROVIDERS: ATTEND Physician Assistant
DX: E11.69 Type 2 diabetes mellitus with other specified complication (principal)

== ENCOUNTER → 2022-09-04 | Outpatient (REF) | payer OTHER | LOC: M SFHCCAPE 09:50 | PROVIDERS: ATTEND Physician Assistant | DX: J06.9 Acute upper respiratory infection, unspecified (principal) ==

== ENCOUNTER → 2023-02-26 | Outpatient (CLI) | payer MEDICARE, OTHER | LOC: M RAD 13:07 | PROVIDERS: ATTEND Nurse Practitioner Family | DX: N18.31 Chronic kidney disease, stage 3a (principal) ==

== ENCOUNTER → 2024-01-18 | Outpatient (CLI) | payer MEDICARE | LOC: M WHC 09:48 | PROVIDERS: ATTEND Family Medicine | DX: Z12.31 Encounter for screening mammogram for malignant neoplasm of breast (principal) ==

== ENCOUNTER → 2024-02-14 | Outpatient (REF) | payer MEDICARE | LOC: M SFHCCAPE 10:20 | PROVIDERS: ATTEND Physician Assistant Medical | DX: R19.7 Diarrhea, unspecified (principal) ==

== ENCOUNTER 2024-03-04 15:00 | Inpatient (IN) | payer MEDICARE ==
[~2024-03-04] VITALS: Ht 162.6 cm; Wt 106.8 kg
[~2024-03-04 15:00] MED LIST changes: -ERGO500029; +ERGO500029 PO; -METO100T5; +METO100T5 PO
[2024-03-04 16:06] LABS: BASO % 0.4 % (0.0-1.0); HEMATOCRIT 39.8 % (36.0-47.0); HEMOGLOBIN 13.1 g/dl (12.0-15.5); LYMPH # 1.3 10^3/uL (1.5-5.0); LYMPH % 23.5 % (24.0-44.0); MEAN CORPUSCULAR HEMOGLOBIN 28.6 pg (27.0-33.0); MEAN CORPUSCULAR HGB CONC 32.9 g/dl (32.0-36.5); MEAN CORPUSCULAR VOLUME 86.9 fl (80.0-96.0); MONO # 0.8 10^3/uL (0.0-0.8); NEUTROPHILS # 3.2 10^3/uL (1.5-8.5); NEUTROPHILS % 60.7 % (36.0-66.0); PLATELET COUNT, AUTOMATED 170 10^3/uL (150-450); RED BLOOD COUNT 4.58 10^6/uL (4.00-5.40); WHITE BLOOD COUNT 5.3 10^3/uL (4.0-10.0)
[2024-03-04 16:32] LABS: VENOUS BASE EXCESS -5.9 (-2.0-2.0); VENOUS HCO3 20.2 MMOL/L (23.0-27.0); VENOUS O2 SATURATION 87.3 % (60.0-80.0); VENOUS PARTIAL PRESSURE CO2 41.9 mmHg (38.0-50.0); VENOUS PH 7.301 UNITS (7.330-7.430); VENOUS STANDARD HCO3 19.5 MMOL/L; VENOUS TOTAL CO2 21.5 MMOL/L (24.0-28.0)
[2024-03-04 18:12] LABS: ALKALINE PHOSPHATASE 88 U/L (46-116); ALT/SGPT 15 U/L (7.0-40); AST/SGOT 15 U/L (<34); BILIRUBIN,DIRECT 0.1 MG/DL (<0.4); BILIRUBIN,TOTAL 0.4 MG/DL (0.3-1.2); BLOOD UREA NITROGEN 30 MG/DL (9-23); CARBON DIOXIDE LEVEL 25 MMOL/L (20-31); CHLORIDE LEVEL 98 MMOL/L (98-107); CREATININE FOR GFR 1.69 MG/DL (0.55-1.30); GLOMERULAR FILTRATION RATE 31.9 (>45); GLUCOSE, FASTING 175 MG/DL (74-106); POTASSIUM SERUM 4.1 MMOL/L (3.5-5.1); SODIUM LEVEL 131 MMOL/L (136-145); THYROID STIMULATING HORMONE 4.835 uIU/ML (0.55-4.78); TOTAL PROTEIN 6.8 G/DL (5.7-8.2)
[2024-03-04 18:23] LABS: OSMOLALITY SERUM 289 MOSM/KG (280-301)
[2024-03-04] MEDS ORDERED: ISOVUE-370 76% 100ML VIAL As Ordered ONE (19:14)
[2024-03-04] MEDS ORDERED: ACETAMINOPHEN 325 MG TAB PO PRN (19:40)
[2024-03-04] MEDS ORDERED: GLUCOSE 4 GM CHEW PO PRN (19:40)
[2024-03-04] MEDS ORDERED: GLUCAGON INJ 1MG VIAL SC PRN (19:40)
[2024-03-04] MEDS ORDERED: MOM 30ML SUSPENSION UDC PO PRN (19:40)
[2024-03-04] MEDS ORDERED: MAALOX 30 ML SUSP *UDC PO PRN (19:40)
[2024-03-04] MEDS ORDERED: DEXTROSE 50% 50ML SYRINGE IV PRN (19:40)
[2024-03-04 19:41] LABS: ETHYL ALCOHOL (ETHANOL) < 0.003 % (0.000-0.010); MAGNESIUM LEVEL 1.9 MG/DL (1.8-2.4)
[2024-03-04 19:43] LABS: SALICYLATE LEVEL < 3.0 MG/DL (<30)
[2024-03-04] MEDS ORDERED: ONDANSETRON 4MG ORAL DISINTEGRATING TAB PO PRN (19:50)
[2024-03-04] MEDS ORDERED: PANT40TA29 PO (20:00)
[2024-03-04] MEDS ORDERED: HYDR-3490 PO (20:00)
[2024-03-04] MEDS ORDERED: LISI40TA4 PO (20:00)
[2024-03-04] MEDS ORDERED: FARX1TAB5 PO (20:00)
[2024-03-04] MEDS ORDERED: SEMA1PEN2 INJ (20:01)
[2024-03-04] MEDS ORDERED: HOME MED LIST COMPLETE! XX SCH (20:05)
[2024-03-04] MEDS: NS 1,000 ML IV ONE (20:15)
[2024-03-04 20:40] LABS: INR 1.18; PARTIAL THROMBOPLASTIN TIME 34.7 SECONDS (24.8-34.2); PROTHROMBIN TIME 14.6 SECONDS (12.5-14.5)
[2024-03-04 20:47] LABS: CK-MB VALUE MASS < 1.0 NG/ML (<3.6)
[2024-03-04 20:48] LABS: C REACTIVE PROTEIN QUANTITATIV 7.4 MG/DL (<1.0)
[2024-03-04 20:49] LABS: CPK CREATINE PHOSPHOKINASE 59 U/L (34-145); MB/CK RELATIVE INDEX 1.69 (< OR =4)
[2024-03-04 20:52] LABS: FERRITIN 170.2 NG/ML (7.3-270.7)
[2024-03-04 20:57] LABS: PROCALCITONIN 0.21 ng/ml
[2024-03-04] MEDS: INSULIN LISPRO (NovoLOG) PER UNIT SC SCH (21:50)
[2024-03-04] MEDS: APIXABAN 5 MG TAB (ELIQUIS) PO SCH (21:50)
[2024-03-04] MEDS: DOCUSATE SODIUM 100MG CAPSULE PO SCH (21:50)
[2024-03-04 22:33] LABS: AMPHETAMINES LEVEL URINE NEGATIVE (NEGATIVE); BARBITURATES URINE NEGATIVE (NEGATIVE); BENZODIAZEPINES URINE NEGATIVE (NEGATIVE); CANNABINOIDS URINE NEGATIVE (NEGATIVE); COCAINE METABOLITE URINE NEGATIVE (NEGATIVE); METHADONE URINE NEGATIVE (NEGATIVE); OPIATES URINE NEGATIVE (NEGATIVE); PHENCYCLIDINE URINE NEGATIVE (NEGATIVE)
[2024-03-04] MEDS: REMDESIVIR 200 MG in NS 250 ML IV ONE (22:39)
[2024-03-04 23:07] VITALS: BP_SYST 156; BP_SYST 166; BP_DIAS 71; TEMP 98; O2SAT 97
[2024-03-04 23:35] VITALS: BP 160/70
[2024-03-05] VITALS (7 sets, daily range): BP systolic 135–153; BP diastolic 61–72; TEMP 97.1–97.8; O2SAT 96–98
[2024-03-05 07:49] LABS: BASO % 0.5 % (0.0-1.0); HEMATOCRIT 37.1 % (36.0-47.0); HEMOGLOBIN 12.1 g/dl (12.0-15.5); LYMPH # 1.4 10^3/uL (1.5-5.0); LYMPH % 24.1 % (24.0-44.0); MEAN CORPUSCULAR HEMOGLOBIN 28.3 pg (27.0-33.0); MEAN CORPUSCULAR HGB CONC 32.6 g/dl (32.0-36.5); MEAN CORPUSCULAR VOLUME 86.7 fl (80.0-96.0); MONO # 0.8 10^3/uL (0.0-0.8); MONO % 14.5 % (2.0-8.0); NEUTROPHILS # 3.5 10^3/uL (1.5-8.5); NEUTROPHILS % 60.7 % (36.0-66.0); PLATELET COUNT, AUTOMATED 178 10^3/uL (150-450); RED BLOOD COUNT 4.28 10^6/uL (4.00-5.40); WHITE BLOOD COUNT 5.8 10^3/uL (4.0-10.0)
[2024-03-05 08:21] LABS: ALBUMIN 2.8 G/DL (3.2-5.2); BILIRUBIN,DIRECT 0.1 MG/DL (<0.4); BILIRUBIN,TOTAL 0.3 MG/DL (0.3-1.2); CREATININE FOR GFR 1.62 MG/DL (0.55-1.30); GLOMERULAR FILTRATION RATE 33.5 (>45); POTASSIUM SERUM 3.9 MMOL/L (3.5-5.1); TOTAL PROTEIN 6.4 G/DL (5.7-8.2)
[2024-03-05] MEDS: INSULIN LISPRO (NovoLOG) PER UNIT SC SCH (08:59)
[2024-03-05] MEDS: METOPROLOL TARTRATE 100MG TAB PO SCH (12:51)
[2024-03-05] MEDS: NS 1,000 ML IV SCH (12:51)
[2024-03-05] MEDS: ATORVASTATIN 20 MG TAB PO SCH (12:52)
[2024-03-05 17:46] LABS: HEMOGLOBIN A1c 6.4 % (4.0-6.0)
[2024-03-05] MEDS: CLOPIDOGREL 75 MG TAB PO SCH (21:12)
[2024-03-05] MEDS: levETIRAcetam 250MG TABLET (KEPPRA) PO SCH (21:12)
[2024-03-05] MEDS: PANTOPRAZOLE 40MG TAB (PROTONIX) PO SCH (21:13)
[2024-03-05] MEDS: REMDESIVIR 100 MG in NS 100 ML IV SCH (21:14)
[2024-03-06 00:52] VITALS: O2SAT 94
[2024-03-06 03:42] VITALS: BP 154/70; TEMP 97.2; O2SAT 96
[2024-03-06 05:41] LABS: BASO % 0.5 % (0.0-1.0); HEMATOCRIT 34.5 % (36.0-47.0); HEMOGLOBIN 11.4 g/dl (12.0-15.5); LYMPH # 1.6 10^3/uL (1.5-5.0); LYMPH % 37.3 % (24.0-44.0); MEAN CORPUSCULAR HEMOGLOBIN 28.6 pg (27.0-33.0); MEAN CORPUSCULAR VOLUME 86.5 fl (80.0-96.0); MONO # 0.7 10^3/uL (0.0-0.8); MONO % 16.2 % (2.0-8.0); NEUTROPHILS # 1.9 10^3/uL (1.5-8.5); PLATELET COUNT, AUTOMATED 180 10^3/uL (150-450); RED BLOOD COUNT 3.99 10^6/uL (4.00-5.40); WHITE BLOOD COUNT 4.2 10^3/uL (4.0-10.0)
[2024-03-06 06:06] LABS: CALCIUM LEVEL 8.8 MG/DL (8.3-10.6); CHOLESTEROL RISK RATIO 4.02 (<5); CREATININE FOR GFR 1.39 MG/DL (0.55-1.30); HDL CHOLESTEROL 30.8 MG/DL (>40); LDL CHOLESTEROL 78.2 MG/DL (<100); MAGNESIUM LEVEL 1.8 MG/DL (1.8-2.4); NON-HDL-C 93.2 MG/DL; POTASSIUM SERUM 4.2 MMOL/L (3.5-5.1)
[2024-03-06 12:00] VITALS: BP 161/73; TEMP 96.6; O2SAT 98
[2024-03-06 20:00] VITALS: BP 160/72; TEMP 97.3; O2SAT 96
[2024-03-06 21:00] VITALS: O2SAT 94
[2024-03-07 04:00] VITALS: BP 153/75; TEMP 97.9; O2SAT 97
[2024-03-07 05:53] LABS: BASO % 0.6 % (0.0-1.0); EOS % 0.2 % (0.0-3.0); HEMATOCRIT 35.6 % (36.0-47.0); HEMOGLOBIN 11.5 g/dl (12.0-15.5); LYMPH # 1.8 10^3/uL (1.5-5.0); LYMPH % 35.9 % (24.0-44.0); MEAN CORPUSCULAR HGB CONC 32.3 g/dl (32.0-36.5); MEAN CORPUSCULAR VOLUME 86.6 fl (80.0-96.0); MONO # 0.7 10^3/uL (0.0-0.8); MONO % 13.5 % (2.0-8.0); NEUTROPHILS # 2.4 10^3/uL (1.5-8.5); NEUTROPHILS % 49.4 % (36.0-66.0); PLATELET COUNT, AUTOMATED 191 10^3/uL (150-450); RED BLOOD COUNT 4.11 10^6/uL (4.00-5.40); WHITE BLOOD COUNT 4.9 10^3/uL (4.0-10.0)
[2024-03-07 06:21] LABS: CALCIUM LEVEL 8.7 MG/DL (8.3-10.6); CREATININE FOR GFR 1.24 MG/DL (0.55-1.30); GLOMERULAR FILTRATION RATE 45.7 (>45); MAGNESIUM LEVEL 1.6 MG/DL (1.8-2.4); POTASSIUM SERUM 3.9 MMOL/L (3.5-5.1)
[2024-03-07] MEDS: MAG SULF 1GM/100ML (MAG RUN) 1 GM in IV 1 EA IV ONE (09:04)
[2024-03-07 12:00] VITALS: BP 160/78; TEMP 97; O2SAT 94
[2024-03-07 20:00] VITALS: O2SAT 95
[2024-03-07 20:38] VITALS: BP 157/71; TEMP 97.2; O2SAT 98
[2024-03-08 04:56] VITALS: BP 154/62; TEMP 96.8; O2SAT 97
[2024-03-08 06:09] LABS: BASO % 0.5 % (0.0-1.0); EOS % 0.5 % (0.0-3.0); HEMATOCRIT 37.3 % (36.0-47.0); LYMPH # 1.8 10^3/uL (1.5-5.0); LYMPH % 29.4 % (24.0-44.0); MEAN CORPUSCULAR HEMOGLOBIN 27.6 pg (27.0-33.0); MEAN CORPUSCULAR HGB CONC 32.2 g/dl (32.0-36.5); MEAN CORPUSCULAR VOLUME 85.9 fl (80.0-96.0); MONO # 0.7 10^3/uL (0.0-0.8); MONO % 11.8 % (2.0-8.0); NEUTROPHILS # 3.6 10^3/uL (1.5-8.5); NEUTROPHILS % 57.5 % (36.0-66.0); PLATELET COUNT, AUTOMATED 207 10^3/uL (150-450); RED BLOOD COUNT 4.34 10^6/uL (4.00-5.40); WHITE BLOOD COUNT 6.2 10^3/uL (4.0-10.0)
[2024-03-08 06:31] LABS: CALCIUM LEVEL 8.7 MG/DL (8.3-10.6); CREATININE FOR GFR 1.12 MG/DL (0.55-1.30); GLOMERULAR FILTRATION RATE 51.3 (>45); MAGNESIUM LEVEL 1.9 MG/DL (1.8-2.4); POTASSIUM SERUM 4.1 MMOL/L (3.5-5.1)
[2024-03-08] MEDS ORDERED: KEPP250T5 PO (10:13)
[2024-03-08] MEDS ORDERED: SELF1KIT MC (10:20)
[2024-03-08] MEDS ORDERED: INSU100I40 SQ (10:20)
[2024-03-08] MEDS ORDERED: NORV5TAB PO (10:20)
[2024-03-08 10:53] VITALS: BP 176/72
[2024-03-08] MEDS: amLODIPine 5 MG TAB PO ONE (10:53)
[2024-03-08] MEDS ORDERED: KEPP1TAB PO (18:20)
[2024-03-08] MEDS ORDERED: amLODIPine 5 MG TAB PO SCH (21:00)
[2024-03-08] MEDS ORDERED: LEVEMIR (INSULIN DETEMIR) 1 UNITS/0.01ML SC SCH (21:00)
== END 2024-03-08 12:24 | disposition home or self-care (01) | DRG 178 ==
LOC: EDBD 15:00 → M ED 15:00 → M ED INP 19:36 → M MS4PR 23:05 → M MSPAV 03-05 17:38
PROVIDERS: ADMIT Internal Medicine; ATTEND General Practice
PROC: XW033E5 Introduction of Remdesivir Anti-infective into Peripheral Vein, Percutaneous Approach, New Technology Group 5 (ICD-10-PCS; principal; 2024-03-04)
DX: U07.1 COVID-19 (principal); I48.19 Other persistent atrial fibrillation; E11.22 Type 2 diabetes mellitus with diabetic chronic kidney disease; I12.9 Hypertensive chronic kidney disease with stage 1 through stage 4 chronic kidney disease, or unspecified chronic kidney disease; N18.9 Chronic kidney disease, unspecified; E78.5 Hyperlipidemia, unspecified; K21.9 Gastro-esophageal reflux disease without esophagitis; E03.9 Hypothyroidism, unspecified; G47.33 Obstructive sleep apnea (adult) (pediatric); R56.9 Unspecified convulsions; R91.8 Other nonspecific abnormal finding of lung field; E66.9 Obesity, unspecified; Z90.79 Acquired absence of other genital organ(s); Z95.0 Presence of cardiac pacemaker; Z98.49 Cataract extraction status, unspecified eye; Z79.01 Long term (current) use of anticoagulants; Z79.4 Long term (current) use of insulin; Z79.899 Other long term (current) drug therapy; Z88.8 Allergy status to other drugs, medicaments and biological substances; Z91.018 Allergy to other foods; K52.9 Noninfective gastroenteritis and colitis, unspecified

== ENCOUNTER → 2024-03-17 | Outpatient (CLI) | payer MEDICARE ==
[~2024-03-17] MED LIST changes: +FARX1TAB5 PO; +HYDR-3490 PO; +INSU100I40 SQ; +KEPP1TAB PO; +KEPP250T5 PO; +LISI40TA4 PO; +NORV5TAB PO; +PANT40TA29 PO; +SELF1KIT MC; +SEMA1PEN2 INJ
== END ==
LOC: M RAD 14:32
PROVIDERS: ATTEND Physician Assistant Medical
DX: R22.1 Localized swelling, mass and lump, neck (principal)

== ENCOUNTER 2024-04-08 09:07 | Observation (INO) | payer MEDICARE ==
[~2024-04-08] VITALS: Ht 157.5 cm; Wt 109.2 kg
[2024-04-08 10:30] LABS: VENOUS BASE EXCESS -3.2 (-2.0-2.0); VENOUS HCO3 22.5 MMOL/L (23.0-27.0); VENOUS O2 SATURATION 71.9 % (60.0-80.0); VENOUS PARTIAL PRESSURE CO2 42.8 mmHg (38.0-50.0); VENOUS PARTIAL PRESSURE O2 38.1 mmHg (30.0-50.0); VENOUS PH 7.338 UNITS (7.330-7.430); VENOUS STANDARD HCO3 21.2 MMOL/L; VENOUS TOTAL CO2 23.8 MMOL/L (24.0-28.0)
[2024-04-08 10:37] LABS: BASO # 0.1 10^3/uL (0.0-0.2); BASO % 0.7 % (0.0-1.0); EOS # 0.1 10^3/uL (0.0-0.5); EOS % 0.9 % (0.0-3.0); HEMATOCRIT 38.9 % (36.0-47.0); HEMOGLOBIN 12.5 g/dl (12.0-15.5); LYMPH # 1.6 10^3/uL (1.5-5.0); LYMPH % 18.2 % (24.0-44.0); MEAN CORPUSCULAR HEMOGLOBIN 28.3 pg (27.0-33.0); MEAN CORPUSCULAR HGB CONC 32.1 g/dl (32.0-36.5); MONO # 0.8 10^3/uL (0.0-0.8); MONO % 8.6 % (2.0-8.0); NEUTROPHILS # 6.2 10^3/uL (1.5-8.5); NEUTROPHILS % 71.1 % (36.0-66.0); PLATELET COUNT, AUTOMATED 242 10^3/uL (150-450); RED BLOOD COUNT 4.42 10^6/uL (4.00-5.40); WHITE BLOOD COUNT 8.7 10^3/uL (4.0-10.0)
[2024-04-08] MEDS ORDERED: AMLO1TAB24 PO (10:39)
[2024-04-08] MEDS ORDERED: LEVE500T5 PO (10:39)
[2024-04-08] MEDS ORDERED: TRES1INJ2 SC (10:39)
[2024-04-08 10:48] LABS: INR 1.08; PROTHROMBIN TIME 14.3 SECONDS (12.5-14.5)
[2024-04-08 11:08] LABS: ALBUMIN 3.2 G/DL (3.2-5.2); BILIRUBIN,DIRECT 0.2 MG/DL (<0.4); BILIRUBIN,TOTAL 0.5 MG/DL (0.3-1.2); CALCIUM LEVEL 9.4 MG/DL (8.3-10.6); CREATININE FOR GFR 1.21 MG/DL (0.55-1.30); POTASSIUM SERUM 4.3 MMOL/L (3.5-5.1); TOTAL PROTEIN 6.9 G/DL (5.7-8.2)
[2024-04-08 11:10] LABS: THYROID STIMULATING HORMONE 5.2 uIU/ML (0.55-4.78)
[2024-04-08] MEDS ORDERED: ISOVUE-370 76% 100ML VIAL As Ordered ONE (11:23)
[2024-04-08] MEDS: FUROSEMIDE 40MG/4ML VIAL IV ONE (12:04)
[2024-04-08] MEDS ORDERED: ACETAMINOPHEN 325 MG TAB PO PRN (12:45)
[2024-04-08] MEDS ORDERED: MAALOX 30 ML SUSP *UDC PO PRN (12:45)
[2024-04-08] MEDS ORDERED: MOM 30ML SUSPENSION UDC PO PRN (12:45)
[2024-04-08] MEDS ORDERED: HOME MED LIST COMPLETE! XX SCH (13:45)
[2024-04-08 13:54] VITALS: BP 172/88; TEMP 97.2; O2SAT 96
[2024-04-08] MEDS ORDERED: DEXTROSE 50% 50ML SYRINGE IV PRN (14:00)
[2024-04-08] MEDS ORDERED: GLUCOSE 4 GM CHEW PO PRN (14:00)
[2024-04-08] MEDS ORDERED: GLUCAGON INJ 1MG VIAL SC PRN (14:00)
[2024-04-08 15:17] VITALS: BP 152/84; TEMP 97.5; O2SAT 92
[2024-04-08] MEDS ORDERED: FUROSEMIDE 40MG/4ML VIAL IV SCH (17:00)
[2024-04-08] MEDS: INSULIN LISPRO (NovoLOG) PER UNIT SC SCH ×2 (17:44→20:49)
[2024-04-08 19:53] VITALS: BP 162/68; TEMP 97.1; O2SAT 95
[2024-04-08] MEDS: CLOPIDOGREL 75 MG TAB PO SCH (20:47)
[2024-04-08] MEDS: LEVEMIR (INSULIN DETEMIR) 1 UNITS/0.01ML SC SCH (20:47)
[2024-04-08] MEDS: ATORVASTATIN 20 MG TAB PO SCH (20:47)
[2024-04-08] MEDS: APIXABAN 5 MG TAB (ELIQUIS) PO SCH (20:48)
[2024-04-08] MEDS: DOCUSATE SODIUM 100MG CAPSULE PO SCH (20:48)
[2024-04-08] MEDS: PANTOPRAZOLE 40MG TAB (PROTONIX) PO SCH (20:48)
[2024-04-08] MEDS: amLODIPine 5 MG TAB PO SCH (20:48)
[2024-04-08] MEDS: METOPROLOL TARTRATE 100MG TAB PO SCH (20:48)
[2024-04-08] MEDS: levETIRAcetam 250MG TABLET (KEPPRA) PO SCH (20:48)
[2024-04-08 23:20] VITALS: BP 163/69; TEMP 97.2; O2SAT 94
[2024-04-09] VITALS (8 sets, daily range): BP systolic 152–168; BP diastolic 71–82; TEMP 97–98.5; O2SAT 85–96
[2024-04-09 06:52] LABS: BASO % 0.5 % (0.0-1.0); EOS # 0.1 10^3/uL (0.0-0.5); HEMOGLOBIN 11.8 g/dl (12.0-15.5); LYMPH # 1.4 10^3/uL (1.5-5.0); LYMPH % 17.1 % (24.0-44.0); MEAN CORPUSCULAR HEMOGLOBIN 28.3 pg (27.0-33.0); MEAN CORPUSCULAR HGB CONC 32.8 g/dl (32.0-36.5); MEAN CORPUSCULAR VOLUME 86.3 fl (80.0-96.0); MONO # 0.9 10^3/uL (0.0-0.8); MONO % 11.1 % (2.0-8.0); NEUTROPHILS # 5.7 10^3/uL (1.5-8.5); NEUTROPHILS % 70.1 % (36.0-66.0); PLATELET COUNT, AUTOMATED 222 10^3/uL (150-450); RED BLOOD COUNT 4.17 10^6/uL (4.00-5.40); WHITE BLOOD COUNT 8.1 10^3/uL (4.0-10.0)
[2024-04-09 07:23] LABS: CREATININE FOR GFR 1.29 MG/DL (0.55-1.30); GLOMERULAR FILTRATION RATE 43.6 (>45); MAGNESIUM LEVEL 1.7 MG/DL (1.8-2.4); POTASSIUM SERUM 3.8 MMOL/L (3.5-5.1)
[2024-04-09] MEDS: FUROSEMIDE 40 MG TAB PO SCH (08:08)
[2024-04-09] MEDS: MAG SULF 1GM/100ML (MAG RUN) 1 GM in IV 1 EA IV ONE (08:10)
[2024-04-09] MEDS ORDERED: FURO40TA2 PO (08:42)
[2024-04-09] MEDS ORDERED: CARVedilol 12.5 MG TAB PO ONE (11:35)
[2024-04-09] MEDS ORDERED: CARV25TA PO (11:40)
[2024-04-11] MEDS ORDERED: VITAMIN D 50,000 UNITS CAPSULE (ERGOCALCIFEROL 1.25MG) PO SCH (09:00)
== END 2024-04-09 12:42 | disposition home health service (06) ==
LOC: M ED 09:07 → M ED INP 12:44 → M PCU 13:52
PROVIDERS: ADMIT Internal Medicine; ATTEND Internal Medicine
DX: R06.09 Other forms of dyspnea (principal); R60.0 Localized edema; E87.70 Fluid overload, unspecified; I48.91 Unspecified atrial fibrillation; U07.1 COVID-19; I77.9 Disorder of arteries and arterioles, unspecified; I13.0 Hypertensive heart and chronic kidney disease with heart failure and stage 1 through stage 4 chronic kidney disease, or unspecified chronic kidney disease; E78.5 Hyperlipidemia, unspecified; J90 Pleural effusion, not elsewhere classified; I50.9 Heart failure, unspecified; E03.9 Hypothyroidism, unspecified; G47.33 Obstructive sleep apnea (adult) (pediatric); N18.30 Chronic kidney disease, stage 3 unspecified; E11.22 Type 2 diabetes mellitus with diabetic chronic kidney disease; R56.9 Unspecified convulsions; R91.8 Other nonspecific abnormal finding of lung field; K21.9 Gastro-esophageal reflux disease without esophagitis; E66.9 Obesity, unspecified; Z68.41 Body mass index [BMI] 40.0-44.9, adult; Z90.79 Acquired absence of other genital organ(s); Z95.0 Presence of cardiac pacemaker; Z98.49 Cataract extraction status, unspecified eye; Z98.890 Other specified postprocedural states; Z95.828 Presence of other vascular implants and grafts; Z88.8 Allergy status to other drugs, medicaments and biological substances; Z91.018 Allergy to other foods; Z79.899 Other long term (current) drug therapy; Z79.01 Long term (current) use of anticoagulants; Z79.02 Long term (current) use of antithrombotics/antiplatelets; Z79.4 Long term (current) use of insulin
CPT/HCPCS: 36415; 71045; 71275; 80048; 80076; 82803; 83605; 83735; 83880; 84443; 85025; 85610; 87040; 87426; 87486; 87581; 87633; 87798; 93005; 93041; 93306; 93970; 94760; 96374; 99285; G0378; J1815; J1940; J3475; Q9967

== ENCOUNTER → 2024-08-26 | Outpatient (CLI) | payer MEDICARE ==
[~2024-08-26] MED LIST changes: +AMLO1TAB24 PO; +CARV25TA PO; +FURO40TA2 PO; +LEVE500T5 PO; +LIDOCAINE 1% MDV 20ML VIAL As Ordered ONE; +TRES1INJ2 SC
[2024-08-26 09:15] VITALS: TEMP 97.2
[2024-08-26 09:52] VITALS: BP 142/64; O2SAT 96
[2024-08-26] MEDS: LIDOCAINE 1% MDV 20ML VIAL SC STA (10:04)
== END ==
LOC: M IRPRO 09:00
PROVIDERS: ATTEND Otolaryngology
DX: E04.1 Nontoxic single thyroid nodule (principal)

== ENCOUNTER → 2025-01-09 | Outpatient (CLI) | payer MEDICARE ==
[~2025-01-09] MED LIST changes: -LIDOCAINE 1% MDV 20ML VIAL As Ordered ONE; +LISI40TA10 PO; -LISI40TA4 PO
== END ==
LOC: M RAD 07:34
PROVIDERS: ATTEND Nurse Practitioner Family
DX: N17.9 Acute kidney failure, unspecified (principal)

== ENCOUNTER → 2025-04-15 | Outpatient (CLI) | payer MEDICARE ==
[2025-04-15 14:38] LABS: ESTIMATED AVERAGE GLUCOSE 194.0 MG/DL (60-110)
[2025-04-15 14:50] LABS: CHOLESTEROL LEVEL 139.0 MG/DL (<200); CHOLESTEROL RISK RATIO 3.21 (<5); LDL CHOLESTEROL 71.8 MG/DL (<100); NON-HDL-C 95.8 MG/DL; TRIGLYCERIDES LEVEL 120.0 MG/DL (<150)
== END ==
LOC: M WUC 12:47
PROVIDERS: ATTEND Physician Assistant Medical
DX: R05.3 Chronic cough (principal); E11.69 Type 2 diabetes mellitus with other specified complication